=== PATIENT | female | born 1985 | race Caucasian/White ===

== ENCOUNTER 2016-09-26 21:45 | Emergency (ER) | payer OTHER ==
[~2016-09-26] VITALS: Ht 154.9 cm; Wt 44.5 kg
[2016-09-26 22:28] LABS: BASO % 1.3 %; BASO ABS # 0.08 K/uL (0-0.2); COMPLETE YES; EOS % 2.5 %; HEMATOCRIT 40.5 % (37-47); IG% 0.2 %; LYMPH % 34.7 %; LYMPH ABS # 2.22 K/uL (1.2-3.4); MEAN CELL VOLUME 91.6 fL (80-100); MEAN CORPUSCULAR HEMOGLOBIN 29.4 pg (25-34); MEAN CORPUSCULAR HGB CONC 32.1 g/dl (32-36); MEAN PLATELET VOLUME 9.1 fL (7.4-10.4); MONO % 5.3 %; PLATELET COUNT 323 K/uL (130-400); RED BLOOD COUNT 4.42 M/uL (4.2-5.4); WHITE BLOOD COUNT 6.39 K/uL (4.8-10.8)
[2016-09-26] MEDS: MoRPHine SULFATE 4 MG/ML 1 ML CARP\\VIAL IV PRN ×2 (22:28→23:41)
[2016-09-26 22:45] LABS: BLOOD UREA NITROGEN 17 mg/dl (7-18); BUN/CREATININE RATIO 20.4 (10-20); CALCIUM 8.9 mg/dl (8.5-10.1); CARBON DIOXIDE 27 mmol/L (21-32); CHLORIDE 106 mmol/L (98-107); CREATININE 0.81 mg/dl (0.60-1.20); GLUCOSE 87 mg/dl (70-99); POTASSIUM 3.6 mmol/L (3.5-5.1); SODIUM 141 mmol/L (136-145)
--- NOTE | 2016-09-26 22:59 | DIAGNOSTIC IMAGING REPORT ---
LEFT KNEE 3 VIEWS CLINICAL HISTORY: Fall on concrete. Left knee injury. COMPARISON: None FINDINGS: Evaluation is suboptimal given persistent flexion of the left knee. However, there is a nondisplaced vertical intercondylar fracture of the distal left femur. The proximal extent of the fracture is shown on the AP projection. Slight cortical irregularity of the lateral distal metadiaphysis of the left femur could potentially reflect fracture extension. There is an equivocal nondisplaced through the patella. A small left knee joint effusion is present. IMPRESSION: 1. Acute nondisplaced vertical intercondylar fracture of the distal left femur with possible extension to the lateral femoral condyle. 2. Equivocal nondisplaced patellar fracture. 3. Small left knee joint effusion. Electronically signed by: Christiano Amezquita M.D. 09/26/2016 10:57 PM Dictated Date/Time: 09/26/2016 10:51 PM
--- NOTE | 2016-09-26 22:59 | EMERGENCY ROOM VISIT NOTE ---
ED Visit Note First contact with patient: 21:50 This Patient was discussed with the physician [employer], Mauricio Patel PA-C. The pertinent historical and physical exam findings were confirmed. I agree with the studies ordered and with the interpretations of these studies. I agree with the disposition and care plan.
[2016-09-26] MEDS ORDERED: OPTIRAY 320 IV PRN (23:15)
[2016-09-26 23:17] VITALS: TEMP 36.8; Ht 154.9 cm; Wt 44.5 kg
[2016-09-27] MEDS ORDERED: OXYC1TAB3 PO (00:14)
[2016-09-27] MEDS ORDERED: OXYCODONE IR HOME PACK PO ONE (00:15)
[2016-09-27] MEDS ORDERED: ONDANSETRON HOME PACK 4MG OD TAB PO ONE (00:15)
[2016-09-27] MEDS: MoRPHine SULFATE 4 MG/ML 1 ML CARP\\VIAL IV PRN (00:34)
[2016-09-27 00:40] VITALS: BP 102/65; PULSE 58; O2SAT 97
--- NOTE | 2016-09-27 08:12 | DIAGNOSTIC IMAGING REPORT ---
CT SCAN OF THE LEFT KNEE WITH IV CONTRAST CLINICAL HISTORY: Left knee fracture. COMPARISON STUDY: Radiographs of left knee dated 09/26/2016. TECHNIQUE: Following the IV administration of 93 cc of Optiray 320, CT scan of the left knee is performed from the distal femoral shaft to the proximal tibial shaft. Images are reviewed in the axial, sagittal, and coronal planes. IV contrast was administered without complication. CT DOSE: 132.21 mGy.cm FINDINGS: The skeletal structures are well mineralized. There is a vertically oriented and nondisplaced fracture of the distal femoral metadiaphyseal region. There is intra-articular extension, and this extends posteriorly from the distal diaphysis to the intercondylar notch and anteriorly extends through the medial femoral trochlea. No additional fracture is identified. The joint spaces are maintained. The patella is intact, as are the proximal tibia and fibula. There is lipohemarthrosis. The surrounding musculature is normal in appearance. The popliteal artery and vein are patent. There is no evidence of vascular injury. A calcified fabella is incidentally noted. IMPRESSION: 1. Vertically oriented fracture through the distal femoral metadiaphysis with intra-articular extension as above. 2. There is associated lipohemarthrosis. 3. There is no evidence of vascular injury. Dictated: 09/27/2016 5:56 AM Transcribed: 09/27/2016 8:12 AM Ricardo Electronically signed by: Jack Chinchilla M.D. 09/27/2016 8:17 AM Dictated Date/Time: 09/27/2016 5:56 AM
--- NOTE | 2016-09-27 17:05 | EMERGENCY ROOM VISIT NOTE ---
History First contact with patient: 21:50 Chief Complaint: KNEEPAIN Stated Complaint: FALL, L KNEE PAIN History of Present Illness The patient is a 31 year old female who presents to the Emergency Room with complaints of fall that occurred less than one hour ago. The patient states that she was carrying her infant son down concrete steps, when she slipped and fell. The patient twisted herself awkwardly to prevent injury to the child, but ultimately suffered injury to her left knee. The patient was not able to ambulate following the incident. She did not check her head or lose consciousness. She does not have other complaints. The patient does arrive via ambulance and has not had anything for pain at this point. She does not have previous history of injury to the knee. She does not have numbness or paresthesias. No chest pain, chest tightness, shortness of breath, or other injuries noted. She rates her discomfort a 5/10 at rest and 9/10 when attempting to move her leg. Review of Systems More than 10 systems were reviewed and otherwise negative with the exception of history of present illness. Past Medical/Surgical History No chronic medical disease Family History No pertinent family history Social History Smoking Status: Never Smoker Housing Status: lives with family Current/Historical Medications Scheduled Oxycodone Immediate Rel Tab (Roxicodone Ir), 1-2 TAB PO Q4H Allergies Coded Allergies: No Known Allergies (Unverified , 09/26/16) Physical Exam Vital Signs Date Time Temp Pulse Resp B/P Pulse Ox O2 Delivery O2 Flow Rate FiO2 09/27/16 00:40 58 18 102/65 97 09/26/16 23:44 65 18 111/73 Room Air 09/26/16 23:17 36.8 18 118/62 96 Room Air Pain Rating (0-10): 5.0 Physical Exam VITALS: Vitals are noted on the nurse's note and reviewed by myself. Vital signs stable. GENERAL: Well-developed, well-nourished, who is in moderate discomfort secondary to her stated complaint. She is laying in the emergency department bed with her right leg straight and her left knee bent. She is holding the left knee with her hands. HEAD: Normocephalic atraumatic. EARS: External ear normal. External auditory canals clear, tympanic membranes pearly suarez without erythema or effusion bilaterally. EYES: Pupils equal round and reactive to light and accommodation. Conjunctivae without injection, sclerae without icterus. Extraocular movements intact. NOSE: Patent, turbinates without inflammation or discharge. MOUTH: Mucous membranes moist. Tonsils are not enlarged. Pharynx without erythema, blood, or exudate. Uvula midline. Airway patent. NECK: Supple without nuchal rigidity. No lymphadenopathy. No thyromegaly. Cervical spine is nontender. HEART: Regular rate and rhythm without murmurs gallops or rubs. LUNGS: Clear to auscultation bilaterally without wheezes, rales or rhonchi. No retractions or accessory muscle use. ABDOMEN: Positive normal bowel sounds x 4. Soft, nontender, without masses or organomegaly. No guarding or rebound tenderness. No tenderness with pelvic rock. MUSCULOSKELETAL: Notable edema appreciated throughout the left knee. There is ecchymosis medially consistent with contusion. Examination is limited secondary to patient discomfort. She is unwilling to extend the knee secondary to her injury. There is no other significant muscle skeletal injury noted. NEURO: Patient was alert and oriented to person place and time. CN II through XII grossly intact. Medical Decision & Procedures ER Provider Diagnostic Interpretation: LEFT KNEE 3 VIEWS CLINICAL HISTORY: Fall on concrete. Left knee injury. COMPARISON: None FINDINGS: Evaluation is suboptimal given persistent flexion of the left knee. However, there is a nondisplaced vertical intercondylar fracture of the distal left femur. The proximal extent of the fracture is shown on the AP projection. Slight cortical irregularity of the lateral distal metadiaphysis of the left femur could potentially reflect fracture extension. There is an equivocal nondisplaced through the patella. A small left knee joint effusion is present. IMPRESSION: 1. Acute nondisplaced vertical intercondylar fracture of the distal left femur with possible extension to the lateral femoral condyle. 2. Equivocal nondisplaced patellar fracture. 3. Small left knee joint effusion. CT SCAN OF THE LEFT KNEE WITH IV CONTRAST CLINICAL HISTORY: Left knee fracture. COMPARISON STUDY: Radiographs of left knee dated 09/26/2016. TECHNIQUE: Following the IV administration of 93 cc of Optiray 320, CT scan of the left knee is performed from the distal femoral shaft to the proximal tibial shaft. Images are reviewed in the axial, sagittal, and coronal planes. IV contrast was administered without complication. CT DOSE: 132.21 mGy.cm FINDINGS: The skeletal structures are well mineralized. There is a vertically oriented and nondisplaced fracture of the distal femoral metadiaphyseal region. There is intra-articular extension, and this extends posteriorly from the distal diaphysis to the intercondylar notch and anteriorly extends through the medial femoral trochlea. No additional fracture is identified. The joint spaces are maintained. The patella is intact, as are the proximal tibia and fibula. There is lipohemarthrosis. The surrounding musculature is normal in appearance. The popliteal artery and vein are patent. There is no evidence of vascular injury. A calcified fabella is incidentally noted. IMPRESSION: 1. Vertically oriented fracture through the distal femoral metadiaphysis with intra-articular extension as above. 2. There is associated lipohemarthrosis. 3. There is no evidence of vascular injury. Laboratory Results 09/26/16 22:20 Red Blood Count 4.42, Mean Corpuscular Volume 91.6, Mean Corpuscular Hemoglobin 29.4, Mean Corpuscular Hemoglobin Concent 32.1, Mean Platelet Volume 9.1, Neutrophils (%) (Auto) 56.0, Lymphocytes (%) (Auto) 34.7, Monocytes (%) (Auto) 5.3, Eosinophils (%) (Auto) 2.5, Basophils (%) (Auto) 1.3, Neutrophils # (Auto) 3.58, Lymphocytes # (Auto) 2.22, Monocytes # (Auto) 0.34, Eosinophils # (Auto) 0.16, Basophils # (Auto) 0.08 09/26/16 22:20 Test 09/26/16 22:20 White Blood Count 6.39 K/uL (4.8-10.8) Red Blood Count 4.42 M/uL (4.2-5.4) Hemoglobin 13.0 g/dL (12.0-16.0) Hematocrit 40.5 % (37-47) Mean Corpuscular Volume 91.6 fL (80-100) Mean Corpuscular Hemoglobin 29.4 pg (25-34) Mean Corpuscular Hemoglobin Concent 32.1 g/dl (32-36) Platelet Count 323 K/uL (130-400) Mean Platelet Volume 9.1 fL (7.4-10.4) Neutrophils (%) (Auto) 56.0 % Lymphocytes (%) (Auto) 34.7 % Monocytes (%) (Auto) 5.3 % Eosinophils (%) (Auto) 2.5 % Basophils (%) (Auto) 1.3 % Neutrophils # (Auto) 3.58 K/uL (1.4-6.5) Lymphocytes # (Auto) 2.22 K/uL (1.2-3.4) Monocytes # (Auto) 0.34 K/uL (0.11-0.59) Eosinophils # (Auto) 0.16 K/uL (0-0.5) Basophils # (Auto) 0.08 K/uL (0-0.2) RDW Standard Deviation 43.5 fL (36.4-46.3) RDW Coefficient of Variation 13.0 % (11.5-14.5) Immature Granulocyte % (Auto) 0.2 % Immature Granulocyte # (Auto) 0.01 K/uL (0.00-0.02) Anion Gap 8.0 mmol/L (3-11) Estimated GFR () 113.8 Estimated GFR (Non- 98.1 BUN/Creatinine Ratio 20.4 (10-20) Calcium Level 8.9 mg/dl (8.5-10.1) Medications Administered Medications (Trade) Dose Ordered Sig/Jones Route Start Time Stop Time Status Last Admin Dose Admin Morphine Sulfate (MoRPHine SULFATE INJ) 2 mg Q30M PRN IV 09/26/16 22:00 09/27/16 01:14 DC 09/27/16 00:34 2 MG Oxycodone HCl (Roxicodone Immediate Rel 5MG Home Pack) 1 homepack UD ONCE PO 09/27/16 00:15 09/27/16 00:16 DC 09/27/16 00:34 1 HOMEPACK Ondansetron HCl (ZOFRAN ODT 4MG Home Pack) 1 homepack UD ONCE PO 09/27/16 00:15 09/27/16 00:16 DC 09/27/16 00:34 1 HOMEPACK ED Course Physical exam and history were performed. Nursing notes and EMR were reviewed. Patient appears to have suffered a fall with subsequent injury to her left knee. On examination the patient has significant swelling and tenderness around the left knee without other gross findings. She is unwilling to extend the leg secondary to her discomfort. IV access was established and basic labs were obtained. The patient was given when necessary morphine for comfort. X- rays were performed portably, and while somewhat limited secondary to patient position, do show a distal femur fracture. The patient's blood work is as above and does not show a significant anemia, bandemia, or gross electrolyte imbalance. She does not have gross elevation of her white blood cell count. I discussed the case with my attending physician, Dr. Agrawal, who also independently evaluated the patient. After pain medication and gentle manipulation, we were able to have the patient fully extend her left leg. We were able to appreciate pulses distally, however with the limited views of plain films we did elect to perform a CT scan with IV contrast. The patient CT scan does show the distal femur fracture, which is nondisplaced, and is without vascular injury. I discussed options of care with the patient and the patient's family, including admission and orthopedic evaluation here at this facility. Evidently the patient lives near [place] and has a very strong preference for having care back grinder to home. They are here locally visiting their in-laws. The case was discussed with the on-call orthopedist, Dr. Henderson, who recommended splinting, immobilization, crutches, and pain medication if the patient had a desire to go home. The patient will likely need surgical intervention, but this can be established back from closer to [place] as is the patient's wish. The patient was placed in a splint and given knee immobilizer. She remained neurovascularly intact and had significant improvement of her pain after analgesics. She was able to ambulate with crutches. She was given copies of her CDs with imaging studies. The patient will be given a course of oxycodone for pain control. She was thoroughly invited back to the ER with any complications or worsening of symptoms. The patient was pleased with this and voiced understanding. She appears to have good resources with her and her in-laws that we'll be able to help her. The patient rated her discomfort a 5/10 at the time of departure. The chart was completed utilizing [employer] Speech Voice Recognition Software. Grammatical errors, random word insertions, pronoun errors, and incomplete sentences are an occasional consequence of this system due to software limitations, ambient noise, and hardware issues. Any formal questions or concerns about the content, text, or information contained within the body of this dictation should be directly addressed to the provider for clarification. . Medical Decision Differential diagnosis includes, but is not limited to: Sprain, strain, fracture , dislocation, subluxation, contusion, and others [employer] Monitoring Program Search Results: patient reviewed within database, no issues identified Impression Primary Impression: Femur fracture, left Additional Impressions: Fall Patella fracture Departure Information Dispostion Home / Self-Care Condition GOOD Prescriptions Oxycodone Immediate Rel Tab (ROXICODONE IR) 5 Mg Tab 1-2 TAB PO Q4H for 3 Days, #36 TAB Prov: Mauricio Patel PA-C 09/27/16 Forms HOME CARE DOCUMENTATION FORM, IMPORTANT VISIT INFORMATION Patient Instructions My [facility] Additional Instructions You were seen and evaluated today on an emergency basis only. This is not a substitute for, or an effort to provide, complete comprehensive medical care. It is not possible to recognize and treat all injuries or illnesses in a single emergency department visit. For this reason it is recommended that you followup with orthopedics on Thursday or Thursday for ongoing care and evaluation. Please try to arrange the appointment as soon as reasonably possible. Take your CT/X-ray pictures with you for this appointment. For baseline pain relief you may alternate ibuprofen and acetaminophen every 4 hours for pain control. Take 600 mg ibuprofen (Advil) and then 4 hours later take 1000 mg acetaminophen (Tylenol). Do not take more than 3000 mg acetaminophen in a single day. Oxycodone (OxyIR) 5mg: Take ONE or TWO pills every FOUR to SIX hours for breakthrough pain. Avoid alcohol, operating machinery or dangerous equipment, working on ladders or roofs, DRIVING, or situations where being under the influence may be dangerous. It is recommended to use an [id number] stool softener such as Colace, 100mg twice daily while taking this medication to avoid constipation. Wear your knee immobilizer and use your crutches at all times except for showering. Take every precaution to prevent falling. Apply ice 20 minutes on and 20 minutes off as much as possible. Do not bear weight on your leg. You are welcome to return to the emergency department anytime with new, worsening, or concerning symptoms. Problem Qualifiers
== END 2016-09-27 00:40 | disposition home or self-care (01) ==
LOC: EDBD 21:45 → C.EDD 21:49 → C.EDB 09-27 00:40
DX: S72.92XA Unspecified fracture of left femur, initial encounter for closed fracture (principal); S82.002A Unspecified fracture of left patella, initial encounter for closed fracture; W01.0XXA Fall on same level from slipping, tripping and stumbling without subsequent striking against object, initial encounter; M25.462 Effusion, left knee